=== PATIENT | female | born 1940 | race Caucasian/White ===

== ENCOUNTER → 2017-02-04 | Outpatient (CLI) | payer OTHER, BC ==
[~2017-02-04] MED LIST: Ascorbic Acid PO; Aspirin E.C. PO; CYANOCOBALAM1000 MCG PO; Caltrate 600/200 PO; Lipitor PO; Motrin PO; Omega III EPA + DHA PO; Trileptal PO; Vicodin,Norco 5/325 PO; Wellbutrin XL PO; celeXA PO
== END | disposition home or self-care (01) ==
LOC: MRI 10:06 → RAD 11:00
DX: M47.896 Other spondylosis, lumbar region (principal); M48.06 Spinal stenosis, lumbar region
CPT/HCPCS: 72114; 72158

== ENCOUNTER 2017-04-01 11:54 | Day surgery (SDC) | payer OTHER, BC ==
[~2017-04-01] VITALS: Ht 162.6 cm; Wt 79.8 kg
[~2017-04-01 11:54] MED LIST changes: +ASPIR 8181 M1 PO; +BUPROPION HCL150 M2 PO; +CALCIUM600 M1 PO; +CELEXA20 MG PO; -CYANOCOBALAM1000 MCG PO; +DIOVAN320 MG PO; +FISH OIL CONC1 EACH PO; +FLOVENT 11120 INHALA IH; +LIPITOR20 MG PO; +METFORMIN HCL500 MG PO; +MOBIC7.5 MG PO; +NEURONTIN100 MG PO; +PRESERVISION A1 EAC2 PO; +TRIAMTERENE-HC1 EACH PO; +VITAMIN B-122500 MCG SL; +VITAMIN C1000 MG PO
[2017-04-01 12:45] LABS: POINT-OF-CARE METER ID UU14174212
== END 2017-04-01 13:48 | disposition home or self-care (01) ==
LOC: PAIN 11:54 → SDC 12:30 → PAIN 12:30
PROVIDERS: Anesthesiology Pain Medicine
DX: M47.26 Other spondylosis with radiculopathy, lumbar region (principal); M51.16 Intervertebral disc disorders with radiculopathy, lumbar region; M48.06 Spinal stenosis, lumbar region; K21.9 Gastro-esophageal reflux disease without esophagitis; I10 Essential (primary) hypertension; J45.20 Mild intermittent asthma, uncomplicated; I44.7 Left bundle-branch block, unspecified; E11.9 Type 2 diabetes mellitus without complications; Z79.82 Long term (current) use of aspirin; Z79.84 Long term (current) use of oral hypoglycemic drugs
CPT/HCPCS: 82948; J1100

== ENCOUNTER 2017-04-22 09:02 | Day surgery (SDC) | payer OTHER, BC ==
[2017-04-22 10:00] LABS: POINT-OF-CARE METER ID UU14174212
== END 2017-04-22 10:56 | disposition home or self-care (01) ==
LOC: PAIN 09:02 → SDC 09:30 → PAIN 10:56
PROVIDERS: Anesthesiology Pain Medicine
DX: M47.26 Other spondylosis with radiculopathy, lumbar region (principal); M51.16 Intervertebral disc disorders with radiculopathy, lumbar region; M48.06 Spinal stenosis, lumbar region; I10 Essential (primary) hypertension; F41.9 Anxiety disorder, unspecified; J45.20 Mild intermittent asthma, uncomplicated; I44.7 Left bundle-branch block, unspecified; E78.01 Familial hypercholesterolemia; E78.2 Mixed hyperlipidemia; E11.9 Type 2 diabetes mellitus without complications; Z79.82 Long term (current) use of aspirin; Z79.84 Long term (current) use of oral hypoglycemic drugs
CPT/HCPCS: 82948; J1100; J2250

== ENCOUNTER 2017-10-20 21:43 | Inpatient (IN) | payer OTHER, BC ==
[~2017-10-20] VITALS: Ht 162.6 cm; Wt 81.6 kg
[~2017-10-20 21:43] MED LIST changes: +CYMBALTA60 MG PO; -NEURONTIN100 MG PO; +NEURONTIN300 MG PO
[2017-10-21] MEDS ORDERED: FISH OIL 1,0001 EAC7 PO (11:22)
[2017-10-21] MEDS ORDERED: PRESERVISION T1 EACH PO (11:23)
[2017-10-21 11:44] VITALS: BP 115/58
[2017-10-21 20:11] VITALS: BP 138/70
[2017-10-21 21:00] VITALS: BP 138/70
[2017-10-22] VITALS (9 sets, daily range): BP systolic 74–121; BP diastolic 40–56
[2017-10-22 10:35] LABS: HEMOGLOBIN A1c (GLYCOHEMOGLOB) 5.8 % (Below 5.7)
[2017-10-22 20:31] LABS: HEMATOCRIT 23.4 % (36.0-46.0)
[2017-10-22 20:36] LABS: HEMOGLOBIN 7.4 G/DL (11.9-15.5)
[2017-10-23] VITALS (12 sets, daily range): BP systolic 90–141; BP diastolic 51–70
[2017-10-23 10:21] LABS: BASOPHIL (%) 0.5 % (0-1); BASOPHIL COUNT 0.1 K/uL (0-0.1); EOSINOPHIL (%) 1.5 % (0-5); EOSINOPHIL COUNT 0.2 K/uL (0-0.3); HEMATOCRIT 32.1 % (36.0-46.0); HEMOGLOBIN 10.1 G/DL (11.9-15.5); IMMATURE GRANULOCYTE (%) 0.8 % (0.0-0.7); LYMPHOCYTE (%) 18.2 % (15-42); LYMPHOCYTE COUNT 1.9 K/uL (1.0-2.8); MCH 30.4 PG (29.0-34.0); MCHC 31.5 G/DL (30.0-36.0); MCV 96.7 FL (83-99); MONOCYTE (%) 14.9 % (3-12); MONOCYTE COUNT 1.6 K/uL (0-0.8); NEUTROPHIL (%) 64.1 % (45-76); NEUTROPHIL COUNT 6.8 K/uL (1.8-6.4); PLATELET COUNT 199 K/uL (156-360); RBC DIS.WIDTH-CV 15.9 % (11.8-14.6); RBC DIS.WIDTH-SD 56.4 % (39-53); RED BLOOD COUNT 3.32 M/uL (3.80-5.20); WHITE BLOOD COUNT 10.7 K/uL (4.1-10.2)
[2017-10-23 10:43] LABS: CHLORIDE 110 MEQ/L (99-109); POTASSIUM 4.6 MEQ/L (3.7-5.4); SODIUM 140 MEQ/L (136-147)
[2017-10-23 11:24] LABS: GFR ESTIMATE (CALCULATED) 57 mL/min/; GLUCOSE 150 mg/dL (70-99); UREA NITROGEN (BUN) 29 mg/dL (9-23)
[2017-10-24 03:44] VITALS: BP 118/57
[2017-10-24 08:16] VITALS: BP 143/71
[2017-10-24 15:33] VITALS: BP 143/69
[2017-10-24 20:09] VITALS: BP 119/58
[2017-10-24 20:35] VITALS: BP 119/58
[2017-10-24 23:52] VITALS: BP 118/56
[2017-10-25 04:09] VITALS: BP 119/60
[2017-10-25 06:18] VITALS: BP 119/60
[2017-10-25 07:24] VITALS: BP 135/69
[2017-10-25 11:38] VITALS: BP 119/63
[2017-10-25 12:00] VITALS: BP 119/63
[2017-10-25] MEDS ORDERED: BENADRYL25 MG PO (16:09)
[2017-10-25] MEDS ORDERED: TIZANIDINE HCL4 MG PO (16:09)
[2017-10-25] MEDS ORDERED: HYDROCODON-ACE1 EAC7 PO (16:09)
== END 2017-10-25 18:28 | DRG 460 ==
LOC: ENRESERV 21:43 → 2SOUTH 10-21 09:20 → 3EAST 10-21 10:26 → ENRESERV 10-21 17:53 → 3EAST 10-21 19:40
PROVIDERS: Internal Medicine; Neurological Surgery
DX: M47.816 Spondylosis without myelopathy or radiculopathy, lumbar region (principal); D62 Acute posthemorrhagic anemia; M48.061 Spinal stenosis, lumbar region without neurogenic claudication; E66.9 Obesity, unspecified; Z68.30 Body mass index [BMI] 30.0-30.9, adult; I95.9 Hypotension, unspecified; I10 Essential (primary) hypertension; Z79.4 Long term (current) use of insulin; E78.5 Hyperlipidemia, unspecified; E11.9 Type 2 diabetes mellitus without complications
CPT/HCPCS: 72100; 76000; 80048; 82948; 83036; 85014; 85018; 85025; 86850; 86900; 86901; 86920; 94799; J0131; J0690; J1100; J1170; J1200; J1580; J1815; J2250; J2270; J2930; J3370; J3480; J7030; J7040; P9016; S0020

== ENCOUNTER → 2018-01-25 | Outpatient (CLI) | payer OTHER, BC ==
[~2018-01-25] MED LIST changes: +BENADRYL25 MG PO; +FISH OIL 1,0001 EAC7 PO; +HYDROCODON-ACE1 EAC7 PO; +PRESERVISION T1 EACH PO; +TIZANIDINE HCL4 MG PO
== END | disposition home or self-care (01) ==
LOC: RAD 16:00
DX: R68.84 Jaw pain (principal)
CPT/HCPCS: 70450; 70486

== ENCOUNTER → 2018-02-10 | Outpatient (CLI) | payer OTHER, BC | END | disposition home or self-care (01) | LOC: RAD 13:08 | DX: R93.0 Abnormal findings on diagnostic imaging of skull and head, not elsewhere classified (principal) | CPT/HCPCS: 70544; 70553 ==